=== PATIENT | female | born 1980 | race Caucasian/White ===

== ENCOUNTER 2018-08-10 11:17 | Observation (INO) | payer OTHER ==
[2018-08-10] MEDS ORDERED: ceFAZolin 2 GM/DEXTROSE 100 ML IV ONE (12:18)
--- NOTE | 2018-08-10 12:18 | PDHPUP ---
History & Physical Update H&P update statement: This history and physical update is based on an assessment of the patient which was completed after admission or registration (within 24 hours), but prior to the surgery/procedure. H&P update: H&P reviewed & patient examined, no change in patient's condition since H&P completed
[2018-08-10] MEDS ORDERED: LR 1,000 ML IV ONE (12:19)
[2018-08-10] MEDS ORDERED: fentaNYL 100 MCG/2 ML INJ ONE ×2 (13:12→17:18)
[2018-08-10] MEDS ORDERED: PROPOFOL 200 MG/20 ML VIAL ONE (13:13)
[2018-08-10] MEDS ORDERED: ROCURONIUM 50 MG/5 ML VIAL ONE ×2 (13:18→14:28)
[2018-08-10] MEDS ORDERED: BUPIVACAINE 0.25% 30 ML SDV ONE (13:37)
[2018-08-10] MEDS ORDERED: MIDAZOLAM 2 MG/2 ML VIAL IVP ONE (13:37)
[2018-08-10] MEDS ORDERED: SCOPOLAMINE HYDROBROMIDE 1 MG/3 DAYS PATCH TD ONE (13:37)
[2018-08-10] MEDS ORDERED: GENTAMICIN SULFATE 80 MG/2 ML VIAL ONE (13:38)
[2018-08-10] MEDS ORDERED: BACITRACIN ZINC 0.5 OZ OINTTUBE TP ONE (13:38)
[2018-08-10] MEDS ORDERED: ceFAZolin 1 GM/5 ML SYR ONE (13:38)
[2018-08-10] MEDS ORDERED: BACITRACIN 50,000 UNITS/10 ML SYR IRR ONE (13:38)
[2018-08-10] MEDS ORDERED: PROPOFOL/EMULSION 500 MG/50 ML BOTTLE IV ONE ×2 (13:48→15:29)
--- NOTE | 2018-08-10 13:49 | PDANEPAE ---
ANE Past Medical History - Cardiovascular History Hx Hypertension: No Hx Arrhythmias: No Hx Chest Pain: No Hx Coronary Artery / Peripheral Vascular Disease: No Hx CHF / Valvular Disease: No Hx Palpitations: No - Pulmonary History Hx COPD: No Hx Asthma/Reactive Airway Disease: No Hx Recent Upper Respiratory Infection: No Hx Oxygen in Use at Home: No Hx Sleep Apnea: No Sleep Apnea Screening Result - Last Documented: Negative - Neurologic History Hx Cerebrovascular Accident: No Hx Seizures: No Hx Dementia: No - Endocrine History Hx Diabetes: No - Renal History Hx Renal Disorders: No - Liver History Hx Hepatic Disorders: No - Neurological & Psychiatric Hx Hx Neurological and Psychiatric Disorders: No - Cancer History Hx Cancer: No - Congenital Disorder History Hx Congenital Disorders: No - GI History Hx Gastrointestinal Disorders: No - Other Health History Other Health History: NEG - Chronic Pain History Chronic Pain: No - Surgical History Prior Surgeries: APPENDECTOMY ANE Review of Systems Review of Systems: - Exercise capacity METS (RN): 5 METS ANE Patient History - Allergies Allergies/Adverse Reactions: Penicillins Allergy (Verified 07/26/18 13:36) Hives - Home Medications Home Medications: NK [No Known Home Meds] 07/26/18 [Last Taken Unknown] - NPO status NPO Since - Liquids (Date): 08/10/18 NPO Since - Liquids (Time): 08:00 NPO Since - Solids (Date): 08/09/18 NPO Since - Solids (Time): 21:00 - Smoking Hx Smoking Status: Never smoked - Family Anes Hx Family Hx Anesthesia Complications: NEG ANE Labs/Vital Signs - Vital Signs Vital Signs: reviewed preoperatively; see RN documention for details Blood Pressure: 121/78 Heart Rate: 97 Respiratory Rate: 18 O2 Sat (%): 98 Height: 170.18 cm Weight: 63.503 kg ANE Physical Exam - Airway Neck exam: FROM, decreased ROM Mallampati Score: Class 1 Mouth exam: normal dental/mouth exam - Pulmonary Pulmonary: clear to auscultation - Cardiovascular Cardiovascular: regular rate and rhythym - ASA Status ASA Status: II ANE Anesthesia Plan Anesthesia Plan: general endotracheal anesthesia
[2018-08-10] MEDS ORDERED: BUPIVACAINE/EPI 0.25% 30 ML SDV ONE (14:22)
[2018-08-10] MEDS ORDERED: DEXAMETHASONE 4 MG/ML VIAL ONE (14:22)
[2018-08-10] MEDS ORDERED: KETOROLAC 30 MG/1 ML SDV ONE (14:23)
[2018-08-10] MEDS ORDERED: HYDROmorphONE/DILAUDID 2 MG/ML INJ ONE (14:25)
[2018-08-10] MEDS ORDERED: ACETAMINOPHEN 325 MG TAB PO PRN (16:05)
[2018-08-10] MEDS ORDERED: ONDANSETRON 4 MG/2 ML VIAL IVP PRN ×2 (16:05→16:22)
[2018-08-10] MEDS ORDERED: METOCLOPRAMIDE 10 MG/2 ML VIAL IVP PRN ×2 (16:05→16:22)
[2018-08-10] MEDS ORDERED: TEMAZEPAM 15 MG CAP PO PRN (16:05)
[2018-08-10] MEDS ORDERED: HYDROCODONE/APAP 5/325 TAB PO PRN (16:05)
[2018-08-10] MEDS ORDERED: ONDANSETRON 4 MG/2 ML VIAL ONE (16:10)
--- NOTE | 2018-08-10 16:11 | POSTOPPROG ---
Post Op Note Date of Operation: 08/10/18 Surgeon: Jonathan Martinez Industrial Order Clerk: Teresita Muñoz PA-C Anesthesiologist: Snow Juares Anesthesia: GET(General Endotracheal) Pre-op Diagnosis: Left breast cancer Post-op Diagnosis: same Procedure: Bilateral mastectomy with bilateral axillary SLNB Inf/Abcess present in the surg proc area at time of surgery?: No EBL: 100-500 Complications: no immediate Drains: Min [place] (bilateral) Specimen(s): Right breast, right axillary sentinel lymph node biopsy, left breast, left axillary sentinel lymph node biopsy
[2018-08-10] MEDS ORDERED: LR 500 ML IV PRN (16:22)
[2018-08-10] MEDS ORDERED: NALOXONE HCL 0.4 MG/ML INJ IVP PRN (16:22)
[2018-08-10] MEDS ORDERED: oxyCODONE IR 5 MG TAB PO PRN (16:22)
[2018-08-10] MEDS ORDERED: DIAZEPAM 5 MG/ML 1 ML SYR IVP PRN (16:22)
[2018-08-10] MEDS ORDERED: PHENYLEPHRINE HCL 100 MCG/ML SYR IVP PRN (16:22)
[2018-08-10] MEDS ORDERED: PROMETHAZINE HCL 25 MG/ML INJ IVP PRN (16:22)
[2018-08-10] MEDS ORDERED: HYDROmorphONE/DILAUDID 1 MG/ML INJ IVP PRN (16:22)
[2018-08-10] MEDS ORDERED: ALBUTEROL 3 ML DEYVIAL IH PRN (16:22)
[2018-08-10] MEDS ORDERED: MEPERIDINE 25 MG/0.5 ML AMP IVP PRN (16:22)
[2018-08-10] MEDS ORDERED: SUGAMMADEX SODIUM 200 MG/2 ML VIAL IVP ONE (16:24)
--- NOTE | 2018-08-10 16:46 | POSTANESTH ---
Post Anesthetic Evaluation Cardiovascular Status: Normal, Stable Respiratory Status: Normal, Stable Level of Consciousness/Mental Status: Can Participate in Eval Pain Control: Adequate, Prn Tx Ordered Nausea/Vomiting Control: Adequate, Prn Tx Ordered Complications Possibly Related to Anesthesia: None Noted
--- NOTE | 2018-08-10 16:47 | GOP ---
[f rep st] OPERATIVE REPORT DATE OF OPERATION: 08/10/2018 SURGEON: Jonathan Martinez MD PLASTIC SURGEON: Roberto Frye M.D. TOP TILE DECORATOR: Teresita Muñoz PA-C. ANESTHESIA: General. ANESTHESIOLOGIST: Snow Juares M.D. 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 PROCEDURE PERFORMED: Bilateral simple mastectomy with bilateral axillary sentinel node sampling, with immediate tissue employment manager reconstruction. FINDINGS: See below. INDICATIONS: 38-year-old female with a newly diagnosed multicentric left breast DCIS. The patient has opted to undergo a left simple mastectomy with axillary sentinel node sampling along with prophylactic right mastectomy with immediate tissue employment manager reconstruction. Risks and benefits were explained to the patient and family including but not limited to bleeding, infection, tumor recurrence, alternative diagnoses, need for additional postoperative intervention, arm edema, nerve injury, as well as indications for completion axillary lymph node dissection. All questions were entertained. She desires to proceed. A surgical corsetier is standard and necessary and customary for the safe performance of this procedure. DESCRIPTION OF PROCEDURE: General anesthesia was induced upon returning from bilateral breast lymphoscintigraphy. Bilateral breasts were elliptically incised incorporating the nipple-areolar complexes using the plasma blade. Skin flaps were created to the level of the clavicle, sternum, inframammary fold as well as latissimus dorsi muscle laterally. The breast envelopes were peeled from medial to lateral, incorporating the pectoralis major fascia. The right breast was extremely fibrous and extremely well vascularized relative to the left. Bilateral breasts were tagged for orientation and sent for permanent specimen processing. Bilateral axillae were opened. [place] nodes were identified bilaterally. Each side measuring approximately 15,000 units on the gamma counter. Two additional hot nodes measuring approximately 2000 units were identified bilaterally as well. No clinically suspicious adenopathy was noted. Background activity was all less than 200 units. Satisfactory hemostasis assured throughout bilateral breast envelopes. Flaps appeared pink, healthy, and viable. Care of the case was turned to Dr. Frye for tissue employment manager placement and wound closure. /[id number]/MODL MTDD
--- NOTE | 2018-08-10 17:02 | GOP ---
[f rep st] OPERATIVE REPORT DATE OF OPERATION: 08/10/2018 SURGEON: Roberto Frye Jr., MD GYMNASTIC COACH: Brenden Kitchen CST, by surgeon request (skilled surgical instruments inspector was necessary due t o the technical complexity of the case and desire to minimize patient anesthesia time). ANESTHESIA: The patient general inhalational anesthetic. PREOPERATIVE DIAGNOSIS: Breast cancer. POSTOPERATIVE DIAGNOSIS: Breast cancer. PROCEDURE PERFORMED: Immediate bilateral breast reconstruction following skin sparing mastectomy wit h utilizing tissue expanders and human dermal allograft. FINDINGS: ESTIMATED BLOOD LOSS: During reconstruction was 20 cc. DESCRIPTION OF PROCEDURE: She was taken to the operating room by Dr. Martinez where uncomplicated bilater al skin sparing mastectomies were performed. The pockets were irrigated with normal saline. Fresh i nstrumentation was utilized and fresh sterile towels were used to redrape the surgical field. During the mastectomies, Allergan 133 FX-13-T tissue expanders were thoroughly tested, filled with 550 cc w ith air and then wrapped with AlloDerm acellular dermis graft. The graft was inset using 3-0 Vicryl suture and all redundancy in the allograft was trimmed to ensure a smooth even contour over the entir e anterior surface of the tissue senior financial reporting accountant. The pocket was rinsed in triple antibiotic saline. The t issue senior financial reporting accountant and AlloDerm complex was then soaked in triple antibiotic saline. It was then sutured down into the correct anatomic position on top of the pectoralis major muscle down to the chest wall using 2-0 PDS suture. A 15 round drain was placed along the inferior gutter bilaterally. The pocket was rinsed again with triple antibiotic saline. 15 cc of 0.25% plain Marcaine was instilled into ea ch pocket. The tissue expanders were deflated to 360 cc bilaterally. The mastectomy flaps were then closed using everting deep dermal 3-0 Monocryl suture and further everted using surgical jacque. S mall dog ears were excised and closed. There was minimal tension on the flaps or on the closure. Sh e had bacitracin, Xeroform, 4x4s applied with a compressive bra. She was extubated in the OR and iveth en to the recovery room awake in stable condition. TISSUE EXPANDERS: Allergan 133 FX-13-T 550 cc devices filled with 360 cc of air bilaterally. DRAINS: Two ROBINA drains placed. COMPLICATIONS: None. INDICATIONS FOR OPERATION: The patient is a 38-year-old white female who is referred from Dr. Archie Martinez after being diagnosed with DCIS. She elected to undergo bilateral mastectomies and was deemed an excellent candidate for prepectoral placement of tissue expanders as part of a staged bilateral br east reconstruction. She was brought to the operating room in conjunction with Dr. Martinez for that purp ose. CLINICAL COURSE: After the risks and benefits of the procedure were explained to the patient, highli ghting bleeding, infection, need for premature tissue senior financial reporting accountant removal, skin flap compromise or loss, wound healing difficulties and need for additional procedures, formal operative consent was obtained . /[id number]/MODL
[2018-08-10] MEDS: fentaNYL 100 MCG/2 ML INJ IVP PRN ×2 (17:22→17:43)
[2018-08-10] MEDS: KETOROLAC 15 MG/1 ML SDV IVP SCH ×2 (19:17→23:54)
[2018-08-10] MEDS ORDERED: HYDROmorphONE/DILAUDID 2 MG/ML INJ IVP PRN (20:01)
[2018-08-11] MEDS: KETOROLAC 15 MG/1 ML SDV IVP SCH ×2 (05:38→11:46)
[2018-08-11 09:12] VITALS: BP 108/65
--- NOTE | 2018-08-11 09:19 | ASMTCMCOM ---
CM Note CM Note Notes: Chart reviewed for discharge planning purposes. 38 year old female underwent bilateral mastectomies. CM to follow for possible needs. Likely independent at discharge. Plan: TBD Date Signed: 08/11/2018 09:18 AM Electronically Signed By:Dimple Ortiz RN
--- NOTE | 2018-08-11 12:24 | GDS ---
[f rep st] DISCHARGE SUMMARY REASON FOR ADMISSION: Multicentric left breast DCIS. HOSPITAL COURSE: 38-year-old female with multicentric left breast DCIS. She underwent bilateral simple mastectomies with bilateral axillary sentinel node sampling and immediate tissue graduate school dean reconstruction. She had a benign postoperative course. She was discharged to home on postop day #1 in good condition, tolerating a regular diet, ambulating in the halls independently with adequate pain control with oral analgesics. She is to follow up with Dr. Frye next week. She will follow up with Dr. Martinez in 2 weeks. Full activity instructions were explained prior to leaving. No dietary restrictions were offered. Postoperative analgesics had been filled at home per [facility]. /[id number]/MODL MTDD
--- NOTE | 2018-08-11 12:40 | ASDISCHSUM ---
Discharge Information Plan Status:Home with No Needs Medically Cleared to Leave:08/11/2018 Discharge Date:08/11/2018 12:30 PM CM D/C Disposition:Home, Routine, Self-Care ADT D/C Disposition:Home, Routine, Self-Care Projected Discharge Date:08/11/2018 12:30 PM Transportation at D/C: Discharge Delay Reason: Follow-Up Date:08/11/2018 12:30 PM Discharge Slot: Final Diagnosis: Placement Information Patient Contact Information Contact Name:JONI Relationship: Address:[address] Home Phone: City:[facility] Phone: [facility] Code:[place] [address] Email: Financial Information Financial Class:HMO and PPO Plans Primary Plan Desc:[facility] Primary Plan Number:[id number] Secondary Plan Desc: Secondary Plan Number: Assessment Information LACE LACE Length of stay for Answers: Less than 1 day current admission Acuity / Level of Answers: No Care: Did the patient have an inpatient admission? Comorbidities - select Answers: Any tumor (including all that apply lymphoma or leukemia) Score: 2 Date Signed: 08/11/2018 12:39 PM Electronically Signed By:Dimple Ortiz RN [facility] CM Progress Note CM Note CM Note Notes: Chart reviewed for discharge planning purposes. 38 year old female underwent bilateral mastectomies. CM to follow for possible needs. Likely independent at discharge. Plan: TBD Date Signed: 08/11/2018 09:18 AM Electronically Signed By:Dimple Ortiz RN Intervention Information
== END 2018-08-11 12:30 | disposition home or self-care (01) ==
LOC: F3N 11:34 → F1N 18:15
PROVIDERS: ADMIT Surgery; ATTEND Surgery
PROC: 0HTV0ZZ Resection of Bilateral Breast, Open Approach (ICD-10-PCS; principal; 2018-08-10 14:00)
PROC: 07T60ZZ Resection of Left Axillary Lymphatic, Open Approach (ICD-10-PCS; principal; 2018-08-10 14:00)
PROC: 07T50ZZ Resection of Right Axillary Lymphatic, Open Approach (ICD-10-PCS; principal; 2018-08-10 14:00)
PROC: 0HR Skin and Breast, Replacement (ICD-10-PCS; 2018-08-10 14:00)
PROC: 0HHV0NZ Insertion of Tissue Expander into Bilateral Breast, Open Approach (ICD-10-PCS; 2018-08-10 14:00)
PROC: 3E0W3HZ Introduction of Radioactive Substance into Lymphatics, Percutaneous Approach (ICD-10-PCS; 2018-08-10 14:00)
DX: C50.412 Malignant neoplasm of upper-outer quadrant of left female breast (principal); Z40.01 Encounter for prophylactic removal of breast; Z17.0 Estrogen receptor positive status [ER+]; Z80.3 Family history of malignant neoplasm of breast
CPT/HCPCS: 15777; 19303; 19357; 38525; 38792; A9520; G0378; C1789; J0690; J1100; J1170; J1200; J1580; J1885; J2250; J2405; J2704; J2765; J3010; Q4116